=== PATIENT | male | born 1965 | race African-American/Black ===

== ENCOUNTER 2016-11-02 08:19 | Day surgery (SDC) | payer BC, OTHER ==
[~2016-11-02 08:19] MED LIST: CLINDAMYCIN 600 MG/D5W RTU 600 MG/50 ML RTUPB IV PRN; RINGERS SOLUTION,LACTATED 1,000 ML IV PRN
[2016-11-02] MEDS ORDERED: LIDOCAINE 2% INJ (20 MG/ML) 20 ML MDV ONE (10:15)
[2016-11-02] MEDS ORDERED: BUPIVACAINE HCL 0.5 % INJ/PF 30 ML SDV ONE (10:16)
[2016-11-02] MEDS ORDERED: MIDAZOLAM 2 MG/2 ML INJ ONE ×2 (10:17→10:18)
[2016-11-02] MEDS ORDERED: PROPOFOL INJ 200 MG/20 ML VIAL IV ONE (10:18)
[2016-11-02] MEDS: POVIDONE-IODINE 10% OINTMENT 28.4 GM ONE ×2 (11:29)
[2016-11-02] MEDS ORDERED: KETAMINE HCL INJ 500 MG/10 ML VIAL ONE (11:39)
--- NOTE | 2016-11-02 12:28 | [facility] OPERATIVE REPORT E ---
[facility] Operative Report NAME: IMAN MENON AGE: 51Y DATE OF SURGERY: 11/02/2016 ROOM: PREOPERATIVE DIAGNOSIS: Onychoincurvatus hallux bilateral. POSTOPERATIVE DIAGNOSIS: Onychoincurvatus hallux bilateral. PROCEDURE PERFORMED: 1. Partial nail avulsion, medial and lateral nail borders, hallux bilateral. 2. Partial matricectomy, medial and lateral corners of matrix, hallux bilateral. SURGEON: YOLIS DE LA TORRE D.P.M. FINDINGS: Intraoperative findings indicated deeply incurvated medial and lateral nail borders causing continuous friction into the nail grooves which has led to lots of discomfort and pain, especially when the patient wears closed-toe shoes. Intraoperative findings were confirmed clinically and radiographically. PROCEDURE: With the patient laying in a dorsal recumbent position, both feet were prepped and draped in the usual standard sterile orthopedic manner after the local anesthesia was administered which was a digital block. The type of anesthesia utilized was a 50/50 mixture of 2% Xylocaine and 0.5% Marcaine. After the anesthetic effect was accomplished attention was directed to the right hallux first. At this point the medial and lateral nail borders were removed en toto. The nail grooves were cleaned from any debris. Next, a digital tourniquet was applied at the base of the right hallux to control hemostasis. At this point two 1 cm in length oblique incisions were placed at the medial and lateral junction of the eponychium of the proximal nail groove. The incisions were angulated about 45 degrees to the long axis of the distal phalanx. At this point the incisions were taken all the way to bone. The skin flaps were created. The corners of the matrix on the medial and lateral sides were excised en toto. The bone was curetted to remove any remnants of matrix that had been left behind, and after that electrodesiccation was performed to eradicate any remnants of matrix tissue. The electrodesiccation also helped with hemostasis and to create a sterile environment. The area was irrigated. The spaces were packed with Gelfoam. The skin flaps were repositioned and anchored down with 4-0 nylon using continuous interlocked stitch. At this point Betadine compression dressing was applied around the right hallux. The digital tourniquet was removed and circulation returned to normal immediately as the normal digital color and temperature became apparent. Next, attention was directed to the left hallux and exactly the same procedures were performed at this point. The patient tolerated the procedures well and left the operating room with stable vital signs and in good condition. The patient was taken to the recovery room alert, conscious and oriented. There are no permanent disabilities anticipated at this time. The patient was discharged home with instructions for postoperative care at home. The patient was given a prescription for pain medicine and antibiotics. Follow-up appointment was set in the office in 72 hours. DICTATING PHYSICIAN: YOLIS DE LA TORRE D.P.M. [id number] PHY#: [id number] ID: [id number] JOB#: [id number] ACCT: [id number] cc:YOLIS DE LA TORRE D.P.M. >
== END 2016-11-02 12:29 | disposition home or self-care (01) ==
LOC: SC 08:19
PROVIDERS: ATTEND Podiatrist Foot & Ankle Surgery
PROC: 0HTRXZZ Resection of Toe Nail, External Approach (ICD-10-PCS; principal; 2016-11-02 09:15)
DX: L60.0 Ingrowing nail (principal); J45.909 Unspecified asthma, uncomplicated; F17.210 Nicotine dependence, cigarettes, uncomplicated; G43.909 Migraine, unspecified, not intractable, without status migrainosus; Z88.5 Allergy status to narcotic agent; Z88.0 Allergy status to penicillin; Z88.6 Allergy status to analgesic agent
CPT/HCPCS: 11750 ×2; 88304 ×2; J2250; J3490 ×3; J2704; 400

== ENCOUNTER → 2019-11-26 | Outpatient (CLI) | payer OTHER ==
[2019-11-26 12:42] LABS: ABSOLUTE BASOPHILS # (AUTO) 0.1 10^3/uL (0.0-0.2); ABSOLUTE EOSINOPHILS # (AUTO) 0.2 10^3/uL (0.0-0.6); ABSOLUTE LYMPHOCYTES (AUTO) 2.6 10^3/uL (0.5-4.7); ABSOLUTE NEUT (AUTO) 4.1 10^3/uL (1.7-8.2); BASOPHILS % (AUTO) 1.2 % (0-2); EOSINOPHILS % (AUTO) 2.6 % (0-6); HEMATOCRIT 41.6 % (37.9-51.0); HEMOGLOBIN 14.1 g/dL (13.5-17.0); LYMPHOCYTES % (AUTO) 32.8 % (13-45); MEAN CORPUSCULAR HEMOGLOBIN 33.9 pg (27.0-33.4); MEAN CORPUSCULAR VOLUME 100 fl (80-97); PLATELET COUNT 305 10^3/uL (150-450); RED BLOOD COUNT 4.17 10^6/uL (4.35-5.55); RED CELL DISTRIBUTION WIDTH 13.6 % (11.5-14.0); SEGMENTED NEUTROPHILS % (AUTO) 50.4 % (42-78); TOTAL CELLS COUNTED % (AUTO) 100 %
[2019-11-26 12:46] LABS: INTERNATIONAL RATION (INR) 0.96
[2019-11-26 12:47] LABS: PARTIAL THROMBOPLASTIN TIME 30.5 SEC (23.5-35.8)
[2019-11-26 12:51] LABS: APPEARANCE,URINE CLEAR; BILIRUBIN,URINE NEGATIVE (NEGATIVE); COLOR,URINE YELLOW; GLUCOSE, URINE NEGATIVE (NEGATIVE); KETONES,URINE NEGATIVE (NEGATIVE); LEUKOCYTE ESTERASE,URINE NEGATIVE (NEGATIVE); NITRITE,URINE NEGATIVE (NEGATIVE); PROTEIN,URINE NEGATIVE (NEGATIVE); UROBILINOGEN,URINE NEGATIVE mg/dL (<2.0)
== END ==
LOC: OD 11:09
PROVIDERS: ATTEND Nurse Practitioner Family
DX: Z51.81 Encounter for therapeutic drug level monitoring (principal); Z79.1 Long term (current) use of non-steroidal anti-inflammatories (NSAID)
CPT/HCPCS: 36415; 81001; 85025; 85610; 85730

== ENCOUNTER → 2020-01-06 | Outpatient (CLI) | payer OTHER ==
[2020-01-06 13:51] VITALS: BP 122/86
--- NOTE | 2020-01-06 13:52 | ER RDC ASSESSMENT REPORT ---
Intake - In the Last 14 days Have you traveled outside [place]?: No Have you been in close contact with someone CONFIRMED: No Worked in Healthcare?: No - Symptoms Subjective Fever([place] feverish): No Chills: No Muscule Aches: No Runny Nose: No Sore Throat: Yes Cough (New or worsening chronic cough): No Shortness of breath: No Nausea or Vomiting: No Headache: No Abdominal Pain: No Diarrhea(3 or more loose stools in last 24 hours): No - Do you have any of the following Chronic lung disease: Asthma or emphysema or COPD: Yes Cystic Fibrosis: No Diabetes: No High Blood Pressure: No Cardiovascular Disease: No Chronic Kidney Disease: No Chronic Liver Disease: No Chronic blood disorder like Sickle Cell Disease: No Weak immune system due to disease or medication: No Neurologic condition that limits movement: No Developmental delay - Moderate to Severe: No Morbid Obesity (>100 pounds over ideal weight): No - Objective Temperature: 98.0 F Pulse Rate: 92 Respiratory Rate: 18 Blood Pressure: 122/86 O2 Sat by Pulse Oximetry: 96 Objective: Given above, testing performed: strep, covid Disposition: Home; Selfcare General - General Stated Complaint: scratchy throat Time Seen by Provider: 01/06/20 13:15 Mode of Arrival: Ambulatory Information source: Patient - HPI Notes: 54-year-old male presents to [facility] clinic for COVID-19 testing. Patient reports no known contact with have a positive individual. Patient is only reporting symptom of sore throat onset 01/04/2020. He denies any fever chills muscle aches runny nose cough shortness of breath nausea or vomiting headache abdominal pain or diarrhea. - Related Data Allergies/Adverse Reactions: aspirin Allergy (Verified 10/30/16 14:20) Generalized Itching morphine Allergy (Verified 10/30/16 14:20) Generalized Itching Penicillins Allergy (Verified 10/30/16 14:20) Unknown reaction Past Medical History - General Information source: Patient - Social History Smoking Status: Current Every Day Smoker Cigarette use (# per day): Yes - 3-4 Smoking Education Provided: Yes - Past Medical History Cardiac Medical History: Reports: None Denies: Hx Heart Attack, Hx Hypertension Pulmonary Medical History: Reports: Hx Asthma - LAST FLARE UP OVER 2 MONTHS EENT Medical History: Reports: None Neurological Medical History: Reports: None. Denies: Hx Cerebrovascular Accident, Hx Seizures Endocrine Medical History: Reports: None Renal/ Medical History: Reports: None Malignancy Medical History: Reports Hx Testicular Cancer GI Medical History: Reports: None. Denies: Hx Hepatitis, Hx Hiatal Hernia, Hx Ulcer Musculoskeletal Medical History: Reports None Skin Medical History: Reports None Psychiatric Medical History: Reports: None Traumatic Medical History: Reports: None Infectious Medical History: Reports: None. Denies: Hx Hepatitis Past Surgical History: Reports: Hx Testicular Surgery. Denies: Hx Open Heart Surgery, Hx Pacemaker Physical Exam - General General appearance: Appears well, Alert In distress: None Notes: PHYSICAL EXAMINATION: GENERAL: Well-appearing and in no acute distress. HEAD: Atraumatic, normocephalic. EYES: sclera anicteric, conjunctiva are normal. ENT: nares patent. Moist mucous membranes. NECK: Normal range of motion, supple without lymphadenopathy. LUNGS: No increased work of breathing. Lung sounds CTAB and equal. No wheezes rales or rhonchi. HEART: Regular rate and rhythm without murmurs. ABDOMEN: Soft, nontender, normal bowel sounds, no guarding. EXTREMITIES: Normal range of motion, no pitting edema. No cyanosis. NEUROLOGICAL: A&O x 3. Normal speech. PSYCH: Normal mood, normal affect. SKIN: Warm, Dry, normal turgor, no rashes or lesions noted Patient Education/Counseling Counseling/Education: Patient presents with symptoms associated with possible Covid 19 infection. Patient does not have emergency worrying symptoms such as difficulty breathing, shortness of breath, chest pain, pressure, confusion or cyanosis. Patient appears suitable for discharge as vital signs are stable and patient is nontoxic in appearance. Good return precautions have been discussed with patient, patient verbalized understanding and is agreeable with discharge plan of care at this time. Guidance for worsening S/SX: As a person under investigation for Covid 19, the [place] department of Health and Human Services, division of public health advises you to adhere to the following guidance until your test results are reported to you. If your test result is positive, you will receive additional information from your provider and your local health department at that time. Remain at home until you are cleared by the health provider or public health authorities. Keep a log of visitors to your home, notify any visitors to your home of your isolation status. If you plan to move to a new address or leave the county, notify the local health department in your County. Call your doctor or seek care if you have an urgent medical need. Before seeking medical care, call ahead to get instructions from the provider before arriving at the medical office clinic or hospital. Notify them that you are being tested for the virus that causes Covid 19 so that arrangements can be made, as necessary, to prevent transmission to others in the healthcare setting. Next, notify the local health department in your county. If a medical emergency arises and you need to call 911, inform the first responders that you are being tested for the virus that causes Covid 19. Next, notify the local health department in your county. RDC Discharge - Discharge Clinical Impression: Encounter for screening laboratory testing for COVID-19 virus Condition: Good Disposition: Home; Selfcare
== END ==
LOC: RDC 12:59
PROVIDERS: ATTEND Registered Nurse
DX: Z20.828 Contact with and (suspected) exposure to other viral communicable diseases (principal); J02.9 Acute pharyngitis, unspecified; J45.909 Unspecified asthma, uncomplicated; F17.210 Nicotine dependence, cigarettes, uncomplicated; Z85.47 Personal history of malignant neoplasm of testis; Z88.0 Allergy status to penicillin; Z88.6 Allergy status to analgesic agent
CPT/HCPCS: 87070; 87880; 87635; C9803; 99201; 99211